=== PATIENT | female | born 1985 | race American Indian/Alaskan Native ===

== ENCOUNTER 2018-03-11 19:47 | Emergency (ER) | payer OTHER ==
[2018-03-11] MEDS ORDERED: TORADOL IM ONE (20:27)
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
[2018-03-11 23:03] VITALS: BP 120/80
== END 2018-03-11 23:03 | disposition home or self-care (01) ==
LOC: ED 19:47
DX: S16.1XXA Strain of muscle, fascia and tendon at neck level, initial encounter (principal); S39.012A Strain of muscle, fascia and tendon of lower back, initial encounter; S80.01XA Contusion of right knee, initial encounter; V49.9XXA Car occupant (driver) (passenger) injured in unspecified traffic accident, initial encounter; Y93.89 Activity, other specified; Y99.8 Other external cause status; Y92.89 Other specified places as the place of occurrence of the external cause
CPT/HCPCS: 29505; 72100; 72125; 73562; 96372; 99284; J1885